=== PATIENT | male | born 1940 | race Asian ===

== ENCOUNTER 2023-03-28 03:43 | Emergency (ER) | payer MEDICARE, MEDICAID ==
[~2023-03-28] VITALS: Ht 182.9 cm; Wt 104.0 kg
[2023-03-28 03:44] VITALS: BP 128/80; PULSE 94; RESP 18; TEMP 98
== END 2023-03-28 05:15 | disposition home or self-care (01) ==
LOC: EMS 03:45
DX: S50.812A Abrasion of left forearm, initial encounter (principal); I10 Essential (primary) hypertension; W06.XXXA Fall from bed, initial encounter; Y93.89 Activity, other specified; Y92.89 Other specified places as the place of occurrence of the external cause; Y99.8 Other external cause status
CPT/HCPCS: 99281; Z7502